=== PATIENT | male | born 1960 | race Caucasian/White ===

== ENCOUNTER 2021-12-08 11:57 | Emergency (ER) | payer SELFPAY ==
[2021-12-08] MEDS ORDERED: Ibuprofen 200 MG TAB ONE (13:27)
== END 2021-12-08 14:13 | disposition home or self-care (01) ==
LOC: BURERS 11:57
DX: J22 Unspecified acute lower respiratory infection (principal); F17.210 Nicotine dependence, cigarettes, uncomplicated; Z20.822 Contact with and (suspected) exposure to COVID-19
CPT/HCPCS: 71045; 87804; 93005; J7620; U0003; U0005